=== PATIENT | female | born 1995 | race Caucasian/White ===

== ENCOUNTER 2017-11-01 17:42 | Emergency (ER) | payer SELFPAY ==
[~2017-11-01] VITALS: Ht 152.4 cm; Wt 85.7 kg
[2017-11-01 17:58] VITALS: BP 128/72
[2017-11-01] MEDS ORDERED: LIDOCAINE 1% (LOCAL ANESTH.) PF 5ml SDV ONE (20:29)
[2017-11-01] MEDS ORDERED: HYDROcodone-ACET 10/325MG TAB PO ONE (20:30)
[2017-11-01] MEDS ORDERED: cefTRIAXone SOD 1,000 MG VL IM ONE (20:30)
== END 2017-11-01 23:33 | disposition home or self-care (01) ==
LOC: ER 17:42
DX: S92.511A Displaced fracture of proximal phalanx of right lesser toe(s), initial encounter for closed fracture (principal); W22.8XXA Striking against or struck by other objects, initial encounter; Y93.89 Activity, other specified; Y92.89 Other specified places as the place of occurrence of the external cause; Y99.8 Other external cause status
CPT/HCPCS: 73630; 96372; 99284; J0696; L3260